=== PATIENT | female | born 1985 | race Caucasian/White ===

== ENCOUNTER 2019-02-25 11:28 | Inpatient (IN) ==
[2019-02-25] MEDS: D5 1/2 NS 1,000 ML IV SCH ×2 (13:36→23:45)
[2019-02-25] MEDS: KEFZOL 1 GM/D5W 1 GM/50 ML IVPB IV SCH ×2 (13:36→20:23)
[2019-02-25] MEDS: PERCOCET-10 PO PRN ×3 (13:45→23:34)
[2019-02-25] MEDS ORDERED: ANALPRAM HC CREAM PR PRN (14:06)
[2019-02-26] MEDS: PERCOCET-10 PO PRN ×5 (03:12→22:59)
[2019-02-26] MEDS: ZOFRAN IV PRN ×2 (03:14→11:18)
[2019-02-26] MEDS: KEFZOL 1 GM/D5W 1 GM/50 ML IVPB IV SCH ×4 (03:19→21:46)
[2019-02-26 07:17] LABS: BASO# 0.02 X1000 (0.0-0.2); BASO% 0.4 % (0.0-0.8); EOS# 0.06 X1000 (0.0-0.7); EOS% 1.1 % (0.0-10.0); LYMPH# 1.78 X1000 (1.2-3.4); LYMPH% 33.6 % (20.5-51.1); MCH 25.9 PG (27-31); MCV 86.3 FL (81-99); MONO# 0.39 X1000 (0.11-0.59); MONO% 7.4 % (1.7-9.3); MPV 10.7 FL (7.4-10.4); NEUT# 3.05 X1000 (1.4-6.5); NEUT% 57.5 % (42.2-75.2); PLT 331 X1000 (130-400); RBC 1.97 XMIL (4.2-5.4); RDW 13.6 % (11.5-14.5)
[2019-02-26 07:39] LABS: HEMOGLOBIN 5.1 g/dL (12.0-16.0)
[2019-02-26] MEDS ORDERED: NS 500 ML IV SCH (07:45)
[2019-02-26 07:53] LABS: AGAP 10; BUN 5 mg/dL (8-22); CHLORIDE 104 mmol/L (98-107); COSMO 274; CREATININE 0.7 mg/dL (0.5-0.9); ESTIMATED GFR > 60; GLUCOSE 113 mg/dL (70-104); POTASSIUM 3.7 mmol/L (3.5-5.1); SODIUM 138 mmol/L (136-145); TCO2 24 mmol/L (25-35)
[2019-02-26 08:23] LABS: LYMPHS 30 % (21-51); MONO 4 % (1-9); SEGS 66 % (42-75)
[2019-02-26 08:24] LABS: HYPOCHROM 2+
[2019-02-26] MEDS: D5 1/2 NS 1,000 ML IV SCH (13:52)
[2019-02-26 14:07] LABS: HEMATOCRIT 24.7 % (37.0-47.0); HEMOGLOBIN 7.9 g/dL (12.0-16.0)
[2019-02-27] MEDS: PERCOCET-10 PO PRN ×2 (04:19→10:33)
[2019-02-27] MEDS: KEFZOL 1 GM/D5W 1 GM/50 ML IVPB IV SCH ×2 (04:20→17:47)
[2019-02-27] MEDS: D5 1/2 NS 1,000 ML IV SCH (04:20)
[2019-02-27 06:42] LABS: BASO# 0.02 X1000 (0.0-0.2); BASO% 0.3 % (0.0-0.8); EOS# 0.18 X1000 (0.0-0.7); EOS% 2.8 % (0.0-10.0); HEMATOCRIT 28.6 % (37.0-47.0); HEMOGLOBIN 9.1 g/dL (12.0-16.0); LYMPH# 1.66 X1000 (1.2-3.4); MCH 27.9 PG (27-31); MCHC 31.8 g/dL (33-37); MCV 87.7 FL (81-99); MONO# 0.58 X1000 (0.11-0.59); MONO% 9.1 % (1.7-9.3); MPV 10.3 FL (7.4-10.4); NEUT# 3.94 X1000 (1.4-6.5); NEUT% 61.8 % (42.2-75.2); PLT 277 X1000 (130-400); RBC 3.26 XMIL (4.2-5.4); WBC 6.38 X1000 (4.8-10.8)
[2019-02-27 07:20] LABS: AGAP 9; BUN 3 mg/dL (8-22); CALCIUM 8.1 mg/dL (8.8-10.2); CHLORIDE 106 mmol/L (98-107); COSMO 280; CREATININE 0.7 mg/dL (0.5-0.9); ESTIMATED GFR > 60; GLUCOSE 103 mg/dL (70-104); POTASSIUM 3.8 mmol/L (3.5-5.1); SODIUM 142 mmol/L (136-145); TCO2 27 mmol/L (25-35)
[2019-02-27] MEDS ORDERED: SALINE LOCK IV FLUID XX ONE (10:28)
[2019-02-28] MEDS: D5 1/2 NS 1,000 ML IV SCH (01:26)
[2019-02-28] MEDS: KEFZOL 1 GM/D5W 1 GM/50 ML IVPB IV SCH (01:27)
[2019-02-28 06:56] LABS: BASO# 0.03 X1000 (0.0-0.2); BASO% 0.4 % (0.0-0.8); EOS# 0.17 X1000 (0.0-0.7); EOS% 2.5 % (0.0-10.0); HEMATOCRIT 28.9 % (37.0-47.0); HEMOGLOBIN 9.2 g/dL (12.0-16.0); LYMPH# 1.56 X1000 (1.2-3.4); LYMPH% 22.7 % (20.5-51.1); MCH 27.7 PG (27-31); MCHC 31.8 g/dL (33-37); MONO# 0.73 X1000 (0.11-0.59); MONO% 10.6 % (1.7-9.3); MPV 10.5 FL (7.4-10.4); NEUT# 4.37 X1000 (1.4-6.5); NEUT% 63.8 % (42.2-75.2); PLT 287 X1000 (130-400); RBC 3.32 XMIL (4.2-5.4); WBC 6.86 X1000 (4.8-10.8)
[2019-02-28 08:17] VITALS: BP 111/63
--- NOTE | 2019-03-09 06:59 | DISCHARGE SUMMARY ---
ADMISSION DATE: 02/25/2019 DISCHARGE DATE: 02/28/2019 PROCEDURE PERFORMED: Three units of packed red blood transfusion. DIAGNOSIS: Prolapsing external hemorrhoids with significant anemia. HISTORY: The patient is a 33-year-old, white female, para 2 2 who on the morning of admission had had a colonoscopy by Dr. Maza. The colonoscopy reveals significant prolapsing external and internal hemorrhoids with bleeding. The patient was quite pale. Packed cell volume was 2 days prior to the colonoscopy revealing a hematocrit of 23. She was somewhat orthostatic, and would get lightheaded when she would stand. I saw the [facility], and subsequently admitted her and transferred her to the emergency room for direct admission. The next day on 02/26, her packed cell volume was down to 17. She subsequently had 2 units of blood that day and 1 unit of blood the next day. She did improve significantly. The edema and the hemorrhoidal tissue was improved. She said she had had some sort of hemorrhoid procedure done 4 years ago with the of her second child, but was not clear on exactly what was done. During her admission, the hemorrhoidal swelling went down significantly. She did improve with the 3 units of blood, and subsequently allowed home on 02/28. She will be seen in the office in a few days and tentatively scheduled for elective stapled hemorrhoidectomy in the future. cc: Kunal Wooten MD
== END 2019-02-28 10:17 | disposition home or self-care (01) | DRG 812 ==
LOC: DIRADM → OBSVTOIN 11:28 → 4N 11:36
PROVIDERS: ADMIT Surgery; ATTEND Surgery
CPT/HCPCS: 36430; 80048; 85014; 85018; 85025; 86850; 86900; 86901; 86920; 96365; 96366; 96375; 96376; A9270; G0378; G0379; J0690; J2405; P9016

== ENCOUNTER 2019-03-25 05:43 | Day surgery (SDC) ==
[2019-03-25] MEDS ORDERED: VERSED ONE (06:19)
[2019-03-25] MEDS ORDERED: XYLOCAINE-MPF 2% ONE (06:19)
[2019-03-25] MEDS ORDERED: FENTANYL ONE (06:20)
[2019-03-25] MEDS ORDERED: QUELICIN (DOSE) ONE (06:20)
[2019-03-25] MEDS ORDERED: DIPRIVAN 1% ONE (06:20)
[2019-03-25] MEDS ORDERED: LR 1,000 ML ONE (06:22)
[2019-03-25] MEDS ORDERED: KEFZOL 1 GM/D5W 1 GM/50 ML IVPB ONE (06:22)
[2019-03-25] MEDS ORDERED: NUPERCAINAL ONE (06:29)
[2019-03-25 06:32] LABS: HEMATOCRIT 35.3 % (37.0-47.0); HEMOGLOBIN 10.8 g/dL (12.0-16.0)
[2019-03-25] MEDS ORDERED: ZOFRAN ONE (08:08)
[2019-03-25] MEDS ORDERED: DECADRON ONE (08:08)
[2019-03-25] MEDS ORDERED: TORADOL ONE (08:09)
[2019-03-25] MEDS: MARCAINE 0.25% PF/EPI 1:200,000 ONE ×2 (08:14→08:30)
[2019-03-25] MEDS ORDERED: D5 1/2 NS 1,000 ML ONE (08:47)
[2019-03-25] MEDS ORDERED: DILAUDID PCA VIAL ONE (08:56)
[2019-03-25] MEDS: DILAUDID ONE ×3 (09:05→17:15)
[2019-03-25] MEDS ORDERED: LR 1,000 ML IV SCH (09:15)
[2019-03-25] MEDS ORDERED: DILAUDID PCA VIAL IV PRN (09:15)
[2019-03-25] MEDS ORDERED: NARCAN IV PRN (09:15)
[2019-03-25] MEDS ORDERED: NORCO-10 PO PRN (09:54)
[2019-03-25 10:44] LABS: HEMATOCRIT 38.5 % (37.0-47.0)
[2019-03-25] MEDS ORDERED: SODIUM CHLORIDE 0.9% INJ PRN (12:37)
[2019-03-25] MEDS: ZOFRAN IV PRN ×2 (12:57→16:49)
--- NOTE | 2019-03-25 13:37 | OPERATIVE NOTE ---
PROCEDURE DATE: 03/25/2019 PREOPERATIVE DIAGNOSIS: Prolapsing external and internal hemorrhoids with history of recent admission with 3 units of packed red blood cell transfusion. PROCEDURE: Today stapled hemorrhoidectomy. SURGEON: Kunal Wooten MD DESCRIPTION OF PROCEDURE: The patient was brought to the operating room. After satisfactory induction of IV and endotracheal anesthesia, she was placed in a prone jackknife position. Her buttocks were taped and spread. Rectal exam revealed the prolapsing external and internal hemorrhoids. No recent bleeding. Her hematocrit is up to 35 at this point. Anal dilation was performed. Subsequent to this, a pursestring of 2-0 Prolene was placed 5 cm inside the anus. This was checked, felt to be satisfactory with no evidence of vaginal or bladder encroachment. The anvil was placed proximal to the pursestring. The pursestring was tied and anchored to the anvil itself. The system was hooked up, wound down. Vaginal check revealed no encroachment. It was held for 1 minute and fired, held for another minute, and removed. A satisfactory donut was obtained. Inspection of the staple line revealed no evidence of bleeding. The [buttplug*]was subsequently placed with [place] ointment around it. The patient had a sterile dressing applied. She was subsequently turned back onto her back, awakened, and extubated in the operating room and transferred to Recovery. Estimated blood loss was about 10 mL. cc: MD Morgan Judd MD MTDD
[2019-03-25] MEDS: D5 1/2 NS 1,000 ML IV SCH ×2 (17:14→18:08)
[2019-03-25] MEDS: PHENERGAN IV PRN (18:09)
[2019-03-26] MEDS: D5 1/2 NS 1,000 ML IV SCH (03:45)
[2019-03-26 08:04] VITALS: BP 110/61
[2019-03-26] MEDS: COLACE PO SCH ×2 (08:10→09:32)
[2019-03-26] MEDS ORDERED: FLOMAX PO SCH (09:00)
[2019-03-26] MEDS: PHENERGAN IV PRN (09:40)
== END 2019-03-26 12:58 | disposition home or self-care (01) ==
LOC: OPS 05:43 → 4N 05:43 → OPS 03-26 12:58
PROVIDERS: ATTEND Surgery
CPT/HCPCS: 81025; 85014; 85018; 88304; 94761; A9270; J0330; J0690; J1100; J1170; J1885; J2250; J2405; J2550; J3010; J7120